=== PATIENT | male | born 1945 | race Caucasian/White ===

== ENCOUNTER → 2019-06-05 | Emergency (ER) | payer MEDICARE ==
[~2019-06-05] VITALS: Ht 177.8 cm; Wt 83.9 kg
[~2019-06-05] MED LIST: ACYCLOVIR800 MG PO; ASPIRIN EC81 MG PO; ATROVENT HFA12.9 GM INH; BENICAR20 MG PO; BENICAR40 MG PO; CHANTIX1 MG PO; FOLIC ACID1 MG PO; IPRAT-ALBUT 0.5-3 ML INH; LIPITOR40 MG PO; PREDNISONE20 MG PO; PROAIR HFA8.5 GM INH; SPIRIVA RESPIMAT4 GM INH; SYMBICORT 16010.2 GM INH; SYNTHROID200 MCG PO; ZOFRAN4 MG PO
== END ==
LOC: ED 07:06
DX: K52.9 Noninfective gastroenteritis and colitis, unspecified (principal); J44.9 Chronic obstructive pulmonary disease, unspecified; E03.9 Hypothyroidism, unspecified; Z85.118 Personal history of other malignant neoplasm of bronchus and lung; Z85.51 Personal history of malignant neoplasm of bladder; Z87.891 Personal history of nicotine dependence; Z95.5 Presence of coronary angioplasty implant and graft; Z79.899 Other long term (current) drug therapy
CPT/HCPCS: 80053; 83615; 83690; 83735; 84100; 85025; 96361; 96374; 99284-25; J2405; J7030

== ENCOUNTER 2021-04-27 09:36 | Observation (INO) | payer MEDICARE ==
[~2021-04-27] VITALS: Ht 177.8 cm; Wt 77.6 kg
--- NOTE | 2021-04-27 12:40 | EKG ---
[facility] [address] [facility] [place] [address] Signed Normal sinus rhythm with sinus arrhythmia Normal ECG No previous ECGs available Confirmed by SCARLET LR DO ([id number]) on 04/27/2021 12:39:59 PM Electronically Signed By: SCARLET LR DO 04/27/21 1240 PATIENT NAME: HAIR MONTERO Electrocardiogram DATE OF : 49 PHYSICIAN: SCARLET LR DO REPORT #: [id number] REPORT IS CONFIDENTIAL AND NOT TO BE RELEASED WITHOUT AUTHORIZATION
[2021-04-27] MEDS ORDERED: LEVOTHYROXINE125 MCG PO (15:30)
[2021-04-27] MEDS ORDERED: VENTOLIN HFA18 GM INH (15:30)
[2021-04-27] MEDS ORDERED: ATORVASTATIN CA40 MG PO (15:33)
--- NOTE | 2021-04-27 16:30 | NUR ---
PT ARRIVED ON MS AT 1600. V/S WDL, ALL LOBES HAVE EXP. WHEEZING PRESENT AND ARE TIGHT. OTHERWISE ASSESSMENT WAS BENIGN.
--- NOTE | 2021-04-27 17:13 | NUR ---
PT EATING DINNER. AT BEDSIDE. NO NEW CONCERNS NOTED.
[2021-04-27] MEDS ORDERED: LEVOTHYROXINE112 MCG PO (18:02)
[2021-04-27] MEDS ORDERED: ADULT ASPIRIN R81 MG PO (18:03)
--- NOTE | 2021-04-27 18:03 | NUR ---
MED REC COMPLETE
--- NOTE | 2021-04-27 18:16 | NUR ---
SINCE ARRIVAL PT HAS BEEN SITTING IN CHAIR. ALL LOBES HAD EXP. WHEEZING PRESENT UPON ARRIVAL AND WERE TIGHT. NO OTHER ISSUES WERE NOTED WITH ASSESSMENT.
--- NOTE | 2021-04-27 20:59 | NUR ---
WAS IN CHAIR, WALKING IN ROOM, BACK TO BED, GOT NEB TX. ON ROOM AIR, LUNGS CLEAR UPPER LOBES, DIM AND TIGHT AT BASES, NO WHEEZING AUSCULTATED, DENIES SOB AT THIS TIME "I FEEL SO MUCH BETTER" STATED. IVF INFUSING, SL AFTER IVF COMPLETED. BP 104/59 ASYMPTOMATIC. TOLERATING FLUIDS , JELLO AND JUICE WELL, NO EMESIS, ABD WITH SLIGHT DISTENTION, LBM 05/25. LONG, MYCOTIC TOENAILS NOTED
--- NOTE | 2021-04-27 23:30 | NUR ---
resting, eyes closed, no distress. call light at bedside
--- NOTE | 2021-04-28 01:47 | NUR ---
AWAKE, WALKED TO BR, VOIDED, BACK TO BED, NO SOB NOTED, LUNGS MUCH IMPROVED, ON ROOM AIR, USING IS AND CORONET APPROPRIATELY AND W/O PROMPTS, SL, TURNS AND REPOSITIONS SELF, NO C/O PAIN OR SOB. FLUIDS AND CALL LIGHT AT BEDSIDE
--- NOTE | 2021-04-28 04:00 | NUR ---
Awakens easily, no c/o sob, no cough at this time. turns and repositions self in bed, tolerating liquid
--- NOTE | 2021-04-28 05:10 | NUR ---
IN TO GET VITALS, ICE WATER FILLED, PT VOIDED, NO FURTHER NEEDS AT THIS TIME
--- NOTE | 2021-04-28 05:22 | NUR ---
Pt awake, watching tv, on room air, lungs dim at bases, much improved, Gets nebs, dry, ocassional cough present, non productive. Up to br, no sob noted. receiving solumedrol IV, completed 1L IVF earlier on this shift. sl at this time, tolerating liquids well, no emesis, no bm. uses call light
--- NOTE | 2021-04-28 06:46 | NUR ---
AMBULATING HALLWAYS UP AND DOWN AND AROUND UPPER AND LOWER NURSING STATION, TOLERATING VERY WELL, NO SOB, ON ROOM AIR.
--- NOTE | 2021-04-28 07:41 | NUR ---
SHIFT REPORT FROM MAMIE BARROSO INCLUDED: pt is doing significantly better since yesterday. pt is maintaining oxygen saturations >92% on RA and ambulating in halls of his own accord without SOB. pt independent in the room through the night. pt currently up to chair, visiting with at this time. pt dressed in his personal clothing and is anticipating DC this morning. pt denies needs at this time. table and call light within reach.
--- NOTE | 2021-04-28 08:00 | NUR ---
ASSESSMENT + MED PASS pt assessment complete, VSS. pt denies SOB, pain, and nausea at this time. pts lungs clear throughout, slightly diminished and tight in the bases. pt o2sats 95% on RA at this time. pt reports that he has "very little" SOB with walking the halls, and that it is "so much better than yesterday and even better than how the SOB was for the last few weeks". pt able to take all meds without difficulty. pt up to chair, having breakfast at this time. pt denies further needs, table and call light in reach.
--- NOTE | 2021-04-28 09:05 | NUR ---
ROUNDING pt up in the halls working with respiratory therapy at this time.
--- NOTE | 2021-04-28 09:31 | NUR ---
RA 95%, AMBULATION APPROX 150FT DESAT 81% BACK TO 88% IN ROOM, 94% SITTING IN CHAIR
--- NOTE | 2021-04-28 10:00 | NUR ---
PATIENT UP FOR DC patient will be seen by Respiratory therapy and physical therapy before DC. pt being qualified for home oxygen to use as needed. pt currently working with RT at this time.
[2021-04-28] MEDS ORDERED: AZITHROMYCIN500 MG PO (10:05)
[2021-04-28] MEDS ORDERED: PREDNISONE20 MG PO (10:12)
--- NOTE | 2021-04-28 10:54 | NUR ---
Face sheet, 02 order, O2 qualifier, dc summary faxed to [employer]. Called and spoke with Demario, their drivers are out, but he will call the store here in town to see if they can deliver a tank for pt to discharge on with.
--- NOTE | 2021-04-28 11:00 | NUR ---
ROUNDING pt working with physical therapy at this time.
--- NOTE | 2021-04-28 11:09 | NUR ---
PT ALERT, ORIENTED AND DRESSED SITTING IN CHAIR. PT HOPES TO DC TODAY. HAS EXPRESSED HIS APPRECIATION FOR THE CARE HE HAS RECEIVED FROM ALL [facility] STAFF DOING BETTER, BELIEVES POLLEN HAS CAUSED HIS PROBLEMS THIS TIME. LEFT HIM A G.POST, BLESSING AND WILL FOLLOW NEEDED
== END 2021-04-28 12:22 | disposition home or self-care (01) ==
LOC: ED 09:36 → MS 09:38
PROVIDERS: ADMIT Student in an Organized Health Care Education/Training Program; ATTEND Student in an Organized Health Care Education/Training Program
DX: J44.1 Chronic obstructive pulmonary disease with (acute) exacerbation (principal); J96.21 Acute and chronic respiratory failure with hypoxia; I25.118 Atherosclerotic heart disease of native coronary artery with other forms of angina pectoris; I12.9 Hypertensive chronic kidney disease with stage 1 through stage 4 chronic kidney disease, or unspecified chronic kidney disease; N18.9 Chronic kidney disease, unspecified; E03.9 Hypothyroidism, unspecified; Z20.822 Contact with and (suspected) exposure to COVID-19; Z87.891 Personal history of nicotine dependence; Z85.118 Personal history of other malignant neoplasm of bronchus and lung; Z85.51 Personal history of malignant neoplasm of bladder; Z95.5 Presence of coronary angioplasty implant and graft; Z79.890 Hormone replacement therapy; Z79.899 Other long term (current) drug therapy
CPT/HCPCS: 71045; 80048; 80053; 83880; 84484; 85025; 93005; 93010; 94640; 94667; 94760; 94761; 96372; 96374; 96376; 97161; 99285-25; C9803; G0378; J1650; J2930; J7121; U0003

== ENCOUNTER → 2022-02-18 | Emergency (ER) | payer MEDICARE ==
[~2022-02-18] VITALS: Ht 177.8 cm; Wt 77.6 kg
[~2022-02-18] MED LIST changes: +ADULT ASPIRIN R81 MG PO; +ATORVASTATIN CA40 MG PO; +AZITHROMYCIN500 MG PO; +LEVOTHYROXINE112 MCG PO; +LEVOTHYROXINE125 MCG PO; +VENTOLIN HFA18 GM INH
--- NOTE | 2022-02-18 23:55 | EKG ---
[facility] [address] [place] [address] Signed Normal sinus rhythm Rightward axis Borderline ECG When compared with ECG of 18-FEB-2022 13:23, (Unconfirmed) NE interval has decreased Confirmed by MICHELE WHITE MD ([id number]) on 02/18/2022 11:55:36 PM Electronically Signed By: MICHELE WHITE MD 02/18/22 2355 PATIENT NAME: HAIR MONTERO SYDNEY Electrocardiogram DATE OF : 49 PHYSICIAN: MICHELE WHITE MD REPORT #: [id number] REPORT IS CONFIDENTIAL AND NOT TO BE RELEASED WITHOUT AUTHORIZATION
== END ==
LOC: ED 13:19
DX: J44.1 Chronic obstructive pulmonary disease with (acute) exacerbation (principal); E03.9 Hypothyroidism, unspecified; J44.9 Chronic obstructive pulmonary disease, unspecified; Z85.118 Personal history of other malignant neoplasm of bronchus and lung; Z87.891 Personal history of nicotine dependence; Z79.899 Other long term (current) drug therapy; Z79.51 Long term (current) use of inhaled steroids; Z79.82 Long term (current) use of aspirin; Z20.822 Contact with and (suspected) exposure to COVID-19
CPT/HCPCS: 36415; 71045; 80053; 83735; 85025; 93005; 93010; 94640; C9803; J2930; U0003